=== PATIENT | male | born 1960 | race Caucasian/White ===

== ENCOUNTER 2017-01-15 14:46 | Emergency (ER) | payer OTHER ==
[~2017-01-15] VITALS: Wt 68.0 kg
[~2017-01-15 14:46] MED LIST: SYNTHROID25 MCG PO; XANAX0.5 MG PO; XARE20MG PO; XARELTO15 M1 PO
[2017-01-15] MEDS ORDERED: LEVAQUIN250 M1 PO (15:12)
[2017-01-15 15:58] LABS: BASO % 0.5 % (0.0-1.0); HEMATOCRIT 40.2 % (42.0-52.0); HEMOGLOBIN 14.2 g/dl (14.0-18.0); LYMPH # 0.6 10*3/uL (1.3-4.4); LYMPH % 10.5 % (27.0-41.0); MEAN CELL VOLUME 93.9 fl (80.0-94.0); MEAN CORPUSCULAR HGB 33.2 pg (27.0-31.0); MEAN CORPUSCULAR HGB CONC 35.3 g/dl (33.0-37.0); MEAN PLATELET VOLUME 11.8 fl (9.6-12.3); MONO # 0.8 10*3/uL (0.1-1.0); MONO % 13.4 % (3.0-9.0); NEUT # 4.2 10*3/uL (2.3-7.9); NEUT % 75.1 % (47.0-73.0); PLATELET COUNT AUTOMATED 74 10*3/uL (130-400); RED BLOOD COUNT 4.28 10*6/uL (4.50-5.90); WHITE BLOOD COUNT 5.6 10*3/uL (4.8-10.8)
[2017-01-15 16:06] LABS: INTERNATIONAL NORM RATIO 1.2 (2.0-3.5); PROTHROMBIN TIME 12.5 SECONDS (9.0-12.4)
[2017-01-15 16:12] LABS: ALKALINE PHOSPHATASE 151 U/L (45-117); BILIRUBIN, DIRECT 0.5 mg/dL (0.0-0.2); BILIRUBIN, TOTAL 0.8 mg/dl (0.2-1.0); BUN 8 mg/dl (7-24); CARBON DIOXIDE 24 mmol/L (21-32); CHLORIDE 96 mmol/L (98-107); EST GLOM FILT AFRICAN AMERICAN > 60 ml/min; GLUCOSE 92 mg/dL (65-99); POTASSIUM 3.5 mmol/L (3.5-5.1); SGOT/AST 76 IU/L (3-35); SGPT/ALT 92 U/L (12-78); SODIUM 137 mmol/L (136-145); TOTAL PROTEIN 6.6 gm/dL (6.4-8.2)
== END 2017-01-15 18:00 | disposition home or self-care (01) ==
LOC: ED 14:46
PROVIDERS: Nurse Practitioner Family
DX: K76.0 Fatty (change of) liver, not elsewhere classified (principal); R79.89 Other specified abnormal findings of blood chemistry; R91.1 Solitary pulmonary nodule; Z86.718 Personal history of other venous thrombosis and embolism; Z79.899 Other long term (current) drug therapy

== ENCOUNTER 2017-04-09 11:49 | Inpatient (IN) | payer OTHER ==
[2017-04-09] VITALS (11 sets, daily range): BP systolic 110–125; BP diastolic 60–78
[~2017-04-09] VITALS: Ht 180.3 cm; Wt 76.7 kg
--- NOTE | ~2017-04-09 | PR ---
[place], [place] PROGRESS NOTE NAME: PAUL RUDOLPH UNIT #: [id number] ROOM: 504 DOCTOR: PAULINO MARINA MD BIRTHDATE: [birth year] DOS: SUBJECTIVE: The patient is doing better. He will be transferred to a [facility]. REVIEW OF SYSTEMS HEENT: No trouble swallowing. No double vision. No loss of vision. No pain. ENT AND RESPIRATORY: No wheeze. No change in voice. No cough. No shortness of breath. No coughing up blood. No epistaxis. CARDIOLOGIC: No chest pain. No dizziness. No irregular heartbeat. No leg edema. No palpitations. No shortness of breath. HEMATOLOGIC AND LYMPH: No past transfusion. No fatigue. No loss of appetite. No easy bruising. GASTROENEROLOGIC: No change in bowel habits. No vomiting blood. No abdominal cramping. No nausea. No vomiting. No diarrhea. No constipation. No blood in stool. MALE REPRODUCTIVE: No testicular pain. No penile discharge. MUSCULOSKELETAL: No back pain. No muscle pain or weakness. No tingling/numbness. UROLOGIC: No pain with urination. No difficulty urinating. No frequent urination. NEUROLOGIC: No burning pain in feet. No trouble with coordination. No loss of consciousness. No headache. No tingling/numbness. No memory loss. PHYSICAL EXAMINATION: GENERAL: Pleasant gentleman in no apparent distress. VITAL SIGNS: Stable, afebrile. HEENT: Normocephalic, atraumatic NECK AND THYROID: Supple. No JVD, thyromegaly, or lymphadenopathy. HEART: Normal S1, S2. Regular rate and rhythm. LUNGS: Clear to auscultation and percussion. ABDOMEN: Soft. Nontender, nondistended. Bowel sounds present. EXTREMITIES: Normal ROM. No clubbing. No edema. LABORATORY DATA: White count of 4.2, hemoglobin 9.8, hematocrit 29.5, platelet count 149,000. Chemistries: Sodium 135, potassium 3.3, EGFR is more than 60, total protein 6.6. TIBC 228, iron 134, saturation 58. No lupus anticoagulant was detected. Hepatitis E antibody IgM was positive. Haptoglobin was 117, ferritin was 644.8. Folic acid 2.94, vitamin B12 324. ASSESSMENT: 1. Anemia of chronic disease. 2. Probably of folic acid deficiency. 3. Macrocytosis. 4. Post-thrombotic syndrome of left upper extremity. 5. Hepatic steatosis. PLAN: The patient is going to [facility] for rehab. We will keep a close watch at this time. His counts are low, but hopefully get better. His overall condition improves, he will be following his outpatient, [place], [place] PROGRESS NOTE NAME: PAUL RUDOLPH UNIT #: [id number] ROOM: [facility] DOCTOR: LAINA STEINBERG,PAULINO BIRTHDATE: [birth year] further intervention and discussed with the patient in detail. PAULINO MARINA MD CM:PNTRANS [id number] PAULINO MARINA MD 04/17/17 0147 interface
[~2017-04-09 11:49] MED LIST changes: +LEVAQUIN250 M1 PO
[2017-04-09 12:38] LABS: BASO % 0.3 % (0.0-1.0); EOS % 0.2 % (1.0-4.0); HEMATOCRIT 20.8 % (42.0-52.0); HEMOGLOBIN 6.6 g/dl (14.0-18.0); IG # 0.1 10*3/uL (0.0-0.1); LYMPH # 0.4 10*3/uL (1.3-4.4); LYMPH % 6.8 % (27.0-41.0); MEAN CELL VOLUME 106.7 fl (80.0-94.0); MEAN CORPUSCULAR HGB 33.8 pg (27.0-31.0); MEAN CORPUSCULAR HGB CONC 31.7 g/dl (33.0-37.0); MEAN PLATELET VOLUME 10.2 fl (9.6-12.3); MONO # 0.5 10*3/uL (0.1-1.0); MONO % 7.3 % (3.0-9.0); NEUT # 5.3 10*3/uL (2.3-7.9); NEUT % 84.1 % (47.0-73.0); PLATELET COUNT AUTOMATED 143 10*3/uL (130-400); RED BLOOD COUNT 1.95 10*6/uL (4.50-5.90); WHITE BLOOD COUNT 6.3 10*3/uL (4.8-10.8)
[2017-04-09 12:56] LABS: ALBUMIN 2.9 gm/dl (3.1-4.5); ALKALINE PHOSPHATASE 253 U/L (45-117); BILIRUBIN, TOTAL 3.8 mg/dl (0.2-1.0); BUN 12 mg/dl (7-24); CARBON DIOXIDE 21 mmol/L (21-32); CHLORIDE 98 mmol/L (98-107); EST GLOM FILT AFRICAN AMERICAN > 60 ml/min; GLUCOSE 96 mg/dL (65-99); POTASSIUM 4.7 mmol/L (3.5-5.1); SGOT/AST 75 IU/L (3-35); SGPT/ALT 50 U/L (12-78); SODIUM 133 mmol/L (136-145); TOTAL PROTEIN 6.3 gm/dL (6.4-8.2)
[2017-04-09 12:57] LABS: TROPONIN I < 0.015 ng/ml (<0.045)
[2017-04-09] MEDS ORDERED: TRAMADOL HCL50 MG PO (15:31)
[2017-04-09 18:12] LABS: CKMB < 0.5 ng/ml (0.5-3.6); CPK 46 U/L (39-308)
[2017-04-09 20:58] LABS: HEMATOCRIT 23.7 % (42.0-52.0); HEMOGLOBIN 7.7 g/dl (14.0-18.0)
[2017-04-10] VITALS: BP 104/58
[2017-04-10 02:25] LABS: CPK 41 U/L (39-308)
[2017-04-10 02:28] LABS: CKMB < 0.5 ng/ml (0.5-3.6)
[2017-04-10 06:18] LABS: BASO % 0.4 % (0.0-1.0); EOS % 0.9 % (1.0-4.0); HEMATOCRIT 22.4 % (42.0-52.0); HEMOGLOBIN 7.1 g/dl (14.0-18.0); IG # 0.1 10*3/uL (0.0-0.1); LYMPH # 0.5 10*3/uL (1.3-4.4); LYMPH % 10.5 % (27.0-41.0); MEAN CELL VOLUME 105.2 fl (80.0-94.0); MEAN CORPUSCULAR HGB 33.3 pg (27.0-31.0); MEAN CORPUSCULAR HGB CONC 31.7 g/dl (33.0-37.0); MEAN PLATELET VOLUME 10.2 fl (9.6-12.3); MONO # 0.3 10*3/uL (0.1-1.0); MONO % 5.8 % (3.0-9.0); NEUT # 3.8 10*3/uL (2.3-7.9); NEUT % 81.1 % (47.0-73.0); PLATELET COUNT AUTOMATED 112 10*3/uL (130-400); RED BLOOD COUNT 2.13 10*6/uL (4.50-5.90); RED CELL DISTRI WIDTH 18.5 % (0-14.5); WHITE BLOOD COUNT 4.7 10*3/uL (4.8-10.8)
[2017-04-10 06:39] LABS: CKMB < 0.5 ng/ml (0.5-3.6); CPK 33 U/L (39-308); INTERNATIONAL NORM RATIO 1.1 (2.0-3.5); PROTHROMBIN TIME 11.4 SECONDS (9.0-12.4)
[2017-04-10 06:42] LABS: ALBUMIN 2.5 gm/dl (3.1-4.5); ALKALINE PHOSPHATASE 195 U/L (45-117); BILIRUBIN, TOTAL 3.7 mg/dl (0.2-1.0); BUN 18 mg/dl (7-24); CARBON DIOXIDE 24 mmol/L (21-32); CHLORIDE 100 mmol/L (98-107); CHOLESTEROL 111 mg/dL (<200); EST GLOM FILT AFRICAN AMERICAN > 60 ml/min; GLUCOSE 98 mg/dL (65-99); HDL CHOLESTEROL 49 mg/dl (40-60); LDL CHOLESTEROL 41 mg/dL (9-159); MAGNESIUM 2.1 mg/dL (1.5-2.1); PHOSPHOROUS 3.3 mg/dL (2.5-4.9); POTASSIUM 4.1 mmol/L (3.5-5.1); SGOT/AST 53 IU/L (3-35); SGPT/ALT 38 U/L (12-78); SODIUM 133 mmol/L (136-145); TOTAL PROTEIN 5.6 gm/dL (6.4-8.2); TRIGLYCERIDES 104 mg/dl (<150); VLDL CHOLESTEROL 21 mg/dL (6-40)
[2017-04-10 06:43] LABS: ESTIMATED AVERAGE GLUCOSE 54; HEMOGLOBIN A1c < 3.5 % (4.8-5.6)
[2017-04-10 06:56] LABS: FOLIC ACID 2.94 ng/mL (>5.38); VITAMIN D, 25-HYDROXY 7.2 ng/mL (30-100)
[2017-04-10 08:00] VITALS: BP 106/61
[2017-04-10 10:20] LABS: IRF 33.7 % (2.4-13.3); RETICULOCYTE % 13.18 % (0.50-2.50)
[2017-04-10 10:21] LABS: RET-He 31.8 pg (32.1-37.9)
[2017-04-10 10:35] LABS: IRON 134 ug/dL (65-175)
[2017-04-10 12:00] VITALS: BP 120/62
[2017-04-10 16:00] VITALS: BP 112/66; BP 156/85
[2017-04-10 20:00] VITALS: BP 111/60
[2017-04-11] VITALS: BP 103/62
[2017-04-11 06:01] LABS: BASO % 0.3 % (0.0-1.0); EOS # 0.1 10*3/uL (0.0-0.4); HEMATOCRIT 25.7 % (42.0-52.0); HEMOGLOBIN 8.1 g/dl (14.0-18.0); IG # 0.1 10*3/uL (0.0-0.1); LYMPH # 0.7 10*3/uL (1.3-4.4); LYMPH % 12.9 % (27.0-41.0); MEAN CORPUSCULAR HGB CONC 31.5 g/dl (33.0-37.0); MEAN PLATELET VOLUME 10.6 fl (9.6-12.3); MONO # 0.3 10*3/uL (0.1-1.0); MONO % 4.7 % (3.0-9.0); NEUT # 4.6 10*3/uL (2.3-7.9); NEUT % 80.2 % (47.0-73.0); PLATELET COUNT AUTOMATED 137 10*3/uL (130-400); RED BLOOD COUNT 2.38 10*6/uL (4.50-5.90); RED CELL DISTRI WIDTH 18.3 % (0-14.5); WHITE BLOOD COUNT 5.8 10*3/uL (4.8-10.8)
[2017-04-11 06:25] LABS: BUN 14 mg/dl (7-24); CARBON DIOXIDE 24 mmol/L (21-32); CHLORIDE 99 mmol/L (98-107); EST GLOM FILT AFRICAN AMERICAN > 60 ml/min; GLUCOSE 94 mg/dL (65-99); POTASSIUM 3.6 mmol/L (3.5-5.1); SODIUM 135 mmol/L (136-145)
[2017-04-11 06:32] LABS: PROTHROMBIN TIME 10.1 SECONDS (9.0-12.4)
[2017-04-11 08:00] VITALS: BP 101/74
[2017-04-11 12:00] VITALS: BP 102/65
[2017-04-11 16:00] VITALS: BP 105/63
[2017-04-11 19:10] LABS: HEPATITIS C VIRUS ANTIBODY <0.1 s/co (0.0-0.9)
[2017-04-11 20:00] VITALS: BP 118/74
[2017-04-12] VITALS (11 sets, daily range): BP systolic 109–129; BP diastolic 65–77
[2017-04-12 05:53] LABS: BASO % 0.2 % (0.0-1.0); EOS % 0.9 % (1.0-4.0); HEMATOCRIT 21.4 % (42.0-52.0); HEMOGLOBIN 6.8 g/dl (14.0-18.0); LYMPH # 0.5 10*3/uL (1.3-4.4); LYMPH % 11.4 % (27.0-41.0); MEAN CELL VOLUME 105.9 fl (80.0-94.0); MEAN CORPUSCULAR HGB 33.7 pg (27.0-31.0); MEAN CORPUSCULAR HGB CONC 31.8 g/dl (33.0-37.0); MEAN PLATELET VOLUME 10.6 fl (9.6-12.3); MONO # 0.3 10*3/uL (0.1-1.0); MONO % 6.9 % (3.0-9.0); NEUT # 3.4 10*3/uL (2.3-7.9); NEUT % 79.9 % (47.0-73.0); PLATELET COUNT AUTOMATED 110 10*3/uL (130-400); RED BLOOD COUNT 2.02 10*6/uL (4.50-5.90); RED CELL DISTRI WIDTH 17.3 % (0-14.5); WHITE BLOOD COUNT 4.2 10*3/uL (4.8-10.8)
[2017-04-12 06:26] LABS: ALBUMIN 2.5 gm/dl (3.1-4.5); ALKALINE PHOSPHATASE 160 U/L (45-117); BILIRUBIN, TOTAL 1.7 mg/dl (0.2-1.0); BUN 9 mg/dl (7-24); CARBON DIOXIDE 24 mmol/L (21-32); CHLORIDE 101 mmol/L (98-107); EST GLOM FILT AFRICAN AMERICAN > 60 ml/min; GLUCOSE 94 mg/dL (65-99); POTASSIUM 3.8 mmol/L (3.5-5.1); SGOT/AST 54 IU/L (3-35); SGPT/ALT 40 U/L (12-78); SODIUM 134 mmol/L (136-145); TOTAL PROTEIN 5.6 gm/dL (6.4-8.2)
[2017-04-12 13:30] LABS: BASO % 0.2 % (0.0-1.0); EOS % 0.9 % (1.0-4.0); LYMPH # 0.5 10*3/uL (1.3-4.4); LYMPH % 10.9 % (27.0-41.0); MEAN CORPUSCULAR HGB 33.2 pg (27.0-31.0); MEAN CORPUSCULAR HGB CONC 32.5 g/dl (33.0-37.0); MEAN PLATELET VOLUME 10.6 fl (9.6-12.3); MONO # 0.3 10*3/uL (0.1-1.0); MONO % 6.2 % (3.0-9.0); NEUT # 3.6 10*3/uL (2.3-7.9); NEUT % 81.1 % (47.0-73.0); PLATELET COUNT AUTOMATED 125 10*3/uL (130-400); RED BLOOD COUNT 2.83 10*6/uL (4.50-5.90); RED CELL DISTRI WIDTH 18.7 % (0-14.5); WHITE BLOOD COUNT 4.4 10*3/uL (4.8-10.8)
[2017-04-12 13:31] LABS: HEMATOCRIT 28.9 % (42.0-52.0); HEMOGLOBIN 9.4 g/dl (14.0-18.0); MEAN CELL VOLUME 102.1 fl (80.0-94.0)
[2017-04-13] VITALS: BP 112/60
[2017-04-13 07:14] LABS: BASO % 0.2 % (0.0-1.0); EOS % 0.7 % (1.0-4.0); HEMATOCRIT 26.3 % (42.0-52.0); HEMOGLOBIN 8.7 g/dl (14.0-18.0); LYMPH # 0.6 10*3/uL (1.3-4.4); LYMPH % 13.7 % (27.0-41.0); MEAN CORPUSCULAR HGB 33.1 pg (27.0-31.0); MEAN CORPUSCULAR HGB CONC 33.1 g/dl (33.0-37.0); MEAN PLATELET VOLUME 10.2 fl (9.6-12.3); MONO # 0.4 10*3/uL (0.1-1.0); MONO % 9.8 % (3.0-9.0); NEUT # 3.1 10*3/uL (2.3-7.9); NEUT % 75.1 % (47.0-73.0); PLATELET COUNT AUTOMATED 123 10*3/uL (130-400); RED BLOOD COUNT 2.63 10*6/uL (4.50-5.90); RED CELL DISTRI WIDTH 18.1 % (0-14.5); WHITE BLOOD COUNT 4.1 10*3/uL (4.8-10.8)
[2017-04-13 07:16] LABS: BUN 12 mg/dl (7-24); CARBON DIOXIDE 25 mmol/L (21-32); CHLORIDE 97 mmol/L (98-107); EST GLOM FILT AFRICAN AMERICAN > 60 ml/min; GLUCOSE 87 mg/dL (65-99); POTASSIUM 3.6 mmol/L (3.5-5.1); SODIUM 133 mmol/L (136-145)
[2017-04-13 08:00] VITALS: BP 116/72
[2017-04-13] MEDS ORDERED: KLOR-CON M1010 ME1 PO (10:23)
[2017-04-13] MEDS ORDERED: VITAMIN D50000 I3 PO (10:23)
[2017-04-13] MEDS ORDERED: PANTOPRAZOLE SO40 MG PO (10:23)
[2017-04-13] MEDS ORDERED: LASIX40 MG PO (10:23)
[2017-04-13] MEDS ORDERED: FEOSOL325 MG PO (10:23)
[2017-04-13] MEDS ORDERED: NATURE'S BLEND F1 MG PO (10:23)
[2017-04-13] MEDS ORDERED: NORCO 7.5-3251 EACH PO (10:23)
[2017-04-13 12:00] VITALS: BP 125/81
[2017-04-13 16:00] VITALS: BP 111/72
[2017-04-13 20:00] VITALS: BP 118/71
[2017-04-14] VITALS: BP 102/58
[2017-04-14 08:00] VITALS: BP 114/76
[2017-04-14 09:43] LABS: BASO % 0.5 % (0.0-1.0); EOS % 0.5 % (1.0-4.0); HEMATOCRIT 27.2 % (42.0-52.0); LYMPH # 0.5 10*3/uL (1.3-4.4); LYMPH % 11.5 % (27.0-41.0); MEAN CELL VOLUME 100.4 fl (80.0-94.0); MEAN CORPUSCULAR HGB 33.2 pg (27.0-31.0); MEAN CORPUSCULAR HGB CONC 33.1 g/dl (33.0-37.0); MEAN PLATELET VOLUME 10.1 fl (9.6-12.3); MONO # 0.4 10*3/uL (0.1-1.0); MONO % 9.7 % (3.0-9.0); NEUT # 3.4 10*3/uL (2.3-7.9); NEUT % 77.3 % (47.0-73.0); PLATELET COUNT AUTOMATED 128 10*3/uL (130-400); RED BLOOD COUNT 2.71 10*6/uL (4.50-5.90); RED CELL DISTRI WIDTH 16.8 % (0-14.5); WHITE BLOOD COUNT 4.4 10*3/uL (4.8-10.8)
[2017-04-14 09:50] LABS: PROTHROMBIN TIME 10.3 SECONDS (9.0-12.4)
[2017-04-14 09:54] LABS: BUN 14 mg/dl (7-24); CARBON DIOXIDE 27 mmol/L (21-32); CHLORIDE 96 mmol/L (98-107); EST GLOM FILT AFRICAN AMERICAN > 60 ml/min; GLUCOSE 98 mg/dL (65-99); POTASSIUM 3.9 mmol/L (3.5-5.1); SODIUM 134 mmol/L (136-145)
[2017-04-14 12:00] VITALS: BP 96/66
[2017-04-14 16:00] VITALS: BP 109/59
[2017-04-14 20:00] VITALS: BP 119/67
[2017-04-15] VITALS: BP 122/74
[2017-04-15 02:06] LABS: ANTI-THROMBIN III ACTIVITY 93 % (75-135); LUPUS DRVVT 46.2 sec (0.0-47.0); LUPUS REFLEX INTERPRETATION Comment: (.); PROTEIN S, FREE 120 % (57-157); PROTEIN S, TOTAL 181 % (60-150); PTT-LA 38.7 sec (0.0-51.9)
[2017-04-15 06:21] LABS: BASO % 0.2 % (0.0-1.0); EOS % 0.7 % (1.0-4.0); HEMOGLOBIN 9.3 g/dl (14.0-18.0); LYMPH # 0.6 10*3/uL (1.3-4.4); LYMPH % 13.4 % (27.0-41.0); MEAN CORPUSCULAR HGB 33.2 pg (27.0-31.0); MEAN CORPUSCULAR HGB CONC 33.2 g/dl (33.0-37.0); MONO # 0.4 10*3/uL (0.1-1.0); MONO % 9.8 % (3.0-9.0); NEUT # 3.3 10*3/uL (2.3-7.9); NEUT % 75.4 % (47.0-73.0); PLATELET COUNT AUTOMATED 140 10*3/uL (130-400); RED CELL DISTRI WIDTH 15.8 % (0-14.5); WHITE BLOOD COUNT 4.4 10*3/uL (4.8-10.8)
[2017-04-15 06:38] LABS: ALBUMIN 2.7 gm/dl (3.1-4.5); ALKALINE PHOSPHATASE 150 U/L (45-117); BILIRUBIN, TOTAL 1.6 mg/dl (0.2-1.0); BUN 14 mg/dl (7-24); CARBON DIOXIDE 27 mmol/L (21-32); CHLORIDE 96 mmol/L (98-107); EST GLOM FILT AFRICAN AMERICAN > 60 ml/min; GLUCOSE 86 mg/dL (65-99); POTASSIUM 3.7 mmol/L (3.5-5.1); SGOT/AST 37 IU/L (3-35); SGPT/ALT 40 U/L (12-78); SODIUM 133 mmol/L (136-145); TOTAL PROTEIN 6.6 gm/dL (6.4-8.2)
[2017-04-15 07:07] LABS: HIV 1+2 AB + HIV1 P24 AG Non Reactive (Non Reactive)
[2017-04-15 08:00] VITALS: BP 106/66
[2017-04-15 12:00] VITALS: BP 94/56
[2017-04-15 16:00] VITALS: BP 117/75; BP 131/71
[2017-04-15 20:00] VITALS: BP 100/60
[2017-04-16] VITALS: BP 100/57
[2017-04-16 06:44] LABS: BASO % 0.5 % (0.0-1.0); EOS # 0.1 10*3/uL (0.0-0.4); EOS % 1.2 % (1.0-4.0); HEMATOCRIT 29.5 % (42.0-52.0); HEMOGLOBIN 9.8 g/dl (14.0-18.0); LYMPH # 0.7 10*3/uL (1.3-4.4); LYMPH % 15.9 % (27.0-41.0); MEAN CELL VOLUME 98.7 fl (80.0-94.0); MEAN CORPUSCULAR HGB 32.8 pg (27.0-31.0); MEAN CORPUSCULAR HGB CONC 33.2 g/dl (33.0-37.0); MEAN PLATELET VOLUME 10.5 fl (9.6-12.3); MONO # 0.4 10*3/uL (0.1-1.0); MONO % 8.9 % (3.0-9.0); PLATELET COUNT AUTOMATED 149 10*3/uL (130-400); RED BLOOD COUNT 2.99 10*6/uL (4.50-5.90); RED CELL DISTRI WIDTH 14.9 % (0-14.5); WHITE BLOOD COUNT 4.2 10*3/uL (4.8-10.8)
[2017-04-16 07:12] LABS: BUN 17 mg/dl (7-24); CARBON DIOXIDE 28 mmol/L (21-32); CHLORIDE 97 mmol/L (98-107); EST GLOM FILT AFRICAN AMERICAN > 60 ml/min; GLUCOSE 83 mg/dL (65-99); POTASSIUM 3.3 mmol/L (3.5-5.1); SODIUM 135 mmol/L (136-145)
[2017-04-16 07:21] LABS: PROTHROMBIN TIME 10.6 SECONDS (9.0-12.4)
[2017-04-16 08:00] VITALS: BP 119/72
[2017-04-16 12:00] VITALS: BP 117/80
== END 2017-04-16 15:17 | disposition other institution (70) | DRG 441 ==
LOC: ED 11:49 → EDHOLD 13:59 → 5E 13:59
PROVIDERS: Emergency Medicine; Family Medicine; Hospitalist; Internal Medicine
PROC: 30233N1 Transfusion of Nonautologous Red Blood Cells into Peripheral Vein, Percutaneous Approach (ICD-10-PCS; principal; 2017-04-12)
DX: B15.9 Hepatitis A without hepatic coma (principal); E43 Unspecified severe protein-calorie malnutrition; D69.2 Other nonthrombocytopenic purpura; E87.1 Hypo-osmolality and hyponatremia; I87.002 Postthrombotic syndrome without complications of left lower extremity; D63.8 Anemia in other chronic diseases classified elsewhere; Z79.01 Long term (current) use of anticoagulants; E80.6 Other disorders of bilirubin metabolism; Z86.018 Personal history of other benign neoplasm; Z86.718 Personal history of other venous thrombosis and embolism; Z82.3 Family history of stroke; D53.9 Nutritional anemia, unspecified; Z71.6 Tobacco abuse counseling; R74.0 Nonspecific elevation of levels of transaminase and lactic acid dehydrogenase [LDH]; R74.8 Abnormal levels of other serum enzymes; Z68.23 Body mass index [BMI] 23.0-23.9, adult; K76.0 Fatty (change of) liver, not elsewhere classified; D75.89 Other specified diseases of blood and blood-forming organs; F10.10 Alcohol abuse, uncomplicated; F17.220 Nicotine dependence, chewing tobacco, uncomplicated

== ENCOUNTER 2017-09-17 14:29 | Inpatient (IN) | payer MEDICARE, MEDICAID ==
[~2017-09-17] VITALS: Ht 177.8 cm; Wt 64.9 kg
[~2017-09-17 14:29] MED LIST changes: +FEOSOL325 MG PO; +KLOR-CON M1010 ME1 PO; +LASIX40 MG PO; +NATURE'S BLEND F1 MG PO; +NORCO 7.5-3251 EACH PO; +PANTOPRAZOLE SO40 MG PO; +TRAMADOL HCL50 MG PO; +VITAMIN D50000 I3 PO
[2017-09-17 14:52] VITALS: BP 118/84
[2017-09-17 15:47] LABS: BASO % 0.4 % (0.0-1.0); EOS % 0.3 % (1.0-4.0); HEMATOCRIT 43.6 % (42.0-52.0); HEMOGLOBIN 15.4 g/dl (14.0-18.0); LYMPH # 0.8 10*3/uL (1.3-4.4); LYMPH % 8.5 % (27.0-41.0); MEAN CELL VOLUME 91.2 fl (80.0-94.0); MEAN CORPUSCULAR HGB 32.2 pg (27.0-31.0); MEAN CORPUSCULAR HGB CONC 35.3 g/dl (33.0-37.0); MEAN PLATELET VOLUME 10.2 fl (9.6-12.3); MONO # 1.2 10*3/uL (0.1-1.0); MONO % 12.1 % (3.0-9.0); NEUT # 7.6 10*3/uL (2.3-7.9); NEUT % 78.3 % (47.0-73.0); PLATELET COUNT AUTOMATED 109 10*3/uL (130-400); RED BLOOD COUNT 4.78 10*6/uL (4.50-5.90); RED CELL DISTRI WIDTH 13.3 % (0-14.5); WHITE BLOOD COUNT 9.7 10*3/uL (4.8-10.8)
[2017-09-17 16:00] LABS: ACT PARTIAL THROMBO TIME 27.1 SECONDS (20.8-31.5)
[2017-09-17 16:04] LABS: ALBUMIN 3.4 gm/dl (3.1-4.5); BUN 12 mg/dl (7-24); CHLORIDE 98 mmol/L (98-107); CREATININE 0.94 mg/dL (0.70-1.30); POTASSIUM 4.3 mmol/L (3.5-5.1); SGOT/AST 42 IU/L (3-35); SGPT/ALT 41 U/L (12-78); SODIUM 135 mmol/L (136-145)
[2017-09-17 16:06] LABS: ALKALINE PHOSPHATASE 172 U/L (45-117); TOTAL PROTEIN 7.5 gm/dL (6.4-8.2)
--- NOTE | 2017-09-17 17:02 | NUR ---
A 57, admitted to 5E, under the services of CARSON Shah DO with a diagnosis of DVT. Chief complaint is PAIN TO RT LEG. Patient arrived via stretcher from ER. Monitor applied. Initial assessment completed. Vital signs taken and recorded. CARSON SHAH DO notified of admission to the unit. Orders received. See assessment for past medical history, medications and allergies. Patient and/or family oriented to unit. [facility] visitation policy reviewed. AUDIE XAVIER
[2017-09-17 17:13] VITALS: BP 134/77
--- NOTE | 2017-09-17 17:58 | NUR ---
DR MARINA NOTIFIED OF CONSULT, HE STATES HE IS AT A [facility]. FOLLOW UP ONE WEEK AFTER DISCHARGE.
[2017-09-17 20:00] VITALS: BP 119/67
--- NOTE | 2017-09-17 23:36 | NUR ---
SPOKE WITH DR. VALDES AT THIS TIME FOR PTS. REQUEST OF SOMETHING TO HELP HIM SLEEP. PER DR. VALDES, HE WILL TAKE A LOOK AT IT AND SEE WHAT HE CAN DO.
[2017-09-18] VITALS: BP 118/73
--- NOTE | 2017-09-18 00:42 | NUR ---
restoril given at this time for complaints of not being able to sleep. will monitor for effectiveness.
--- NOTE | 2017-09-18 01:09 | NUR ---
APTT THERAPEUTIC AT 69.1, NO CHANGE TO HEPARIN DRIP AT THIS TIME.
--- NOTE | 2017-09-18 01:30 | NUR ---
RESTORIL EFFECTIVE, PATIENT SLEEPING AT THIS TIME.
--- NOTE | 2017-09-18 05:57 | NUR ---
APTT IS 75.9, NO CHANGE NEEDED FOR HEPARIN DRIP AT THIS TIME.
[2017-09-18 06:03] LABS: ALKALINE PHOSPHATASE 138 U/L (45-117); BUN 12 mg/dl (7-24); CHLORIDE 101 mmol/L (98-107); CHOLESTEROL 171 mg/dL (<200); CREATININE 0.81 mg/dL (0.70-1.30); HDL CHOLESTEROL 100 mg/dl (40-60); LDL CHOLESTEROL 55 mg/dL (9-159); PHOSPHOROUS 3.9 mg/dL (2.5-4.9); POTASSIUM 3.6 mmol/L (3.5-5.1); SGOT/AST 32 IU/L (3-35); SGPT/ALT 36 U/L (12-78); SODIUM 137 mmol/L (136-145); TOTAL PROTEIN 6.4 gm/dL (6.4-8.2); TRIGLYCERIDES 82 mg/dl (<150); VLDL CHOLESTEROL 16 mg/dL (6-40)
[2017-09-18 06:09] LABS: BASO % 0.3 % (0.0-1.0); EOS # 0.1 10*3/uL (0.0-0.4); EOS % 1.3 % (1.0-4.0); HEMATOCRIT 38.1 % (42.0-52.0); HEMOGLOBIN 13.6 g/dl (14.0-18.0); LYMPH # 1.7 10*3/uL (1.3-4.4); LYMPH % 18.3 % (27.0-41.0); MEAN CELL VOLUME 91.6 fl (80.0-94.0); MEAN CORPUSCULAR HGB 32.7 pg (27.0-31.0); MEAN CORPUSCULAR HGB CONC 35.7 g/dl (33.0-37.0); MEAN PLATELET VOLUME 11.1 fl (9.6-12.3); MONO # 1.2 10*3/uL (0.1-1.0); MONO % 12.4 % (3.0-9.0); NEUT # 6.2 10*3/uL (2.3-7.9); NEUT % 67.1 % (47.0-73.0); PLATELET COUNT AUTOMATED 96 10*3/uL (130-400); RED BLOOD COUNT 4.16 10*6/uL (4.50-5.90); RED CELL DISTRI WIDTH 13.3 % (0-14.5); WHITE BLOOD COUNT 9.3 10*3/uL (4.8-10.8)
[2017-09-18 08:00] VITALS: BP 107/75
--- NOTE | 2017-09-18 08:00 | NUR ---
Poultry Scientist in to talk to patient. Patient states lives at home alone. There are 17 steps in the home. Physician: Dr. Hiren Villanueva Pharmacy: [facility] Home health services: none Patient's level of ADLs: INDEPENDENT Patient has working utilities: yes DME: none Follow-up physician's appointment after d/c: will be made by the hospitalist nurse director upon discharge Does patient want to access PORTAL?: no Discharge plan discussed with patient. He lives in an apartment by himself. He is independent in his ADLs and ambulation. At this time he denies any home needs. When medically stable he will be discharged to home. BRIE CANCHOLA
[2017-09-18 08:48] LABS: VITAMIN D, 25-HYDROXY 14.2 ng/mL (30-100)
--- NOTE | 2017-09-18 10:32 | NUR ---
I SPOKE WITH DR. MARTINEZ REGARDING THE CONSULT AND HE SAID THAT HE HAS ALREADY ROUNDED THIS MORNING AND HE SAID THE PHYSICIANS CAN MANAGE THE PE ON THEIR OWN. DR. ATKINS WAS NOTIFIED AND SAID HE WILL CALL DR. MARTINEZ AND ASK HIM SOME QUESTIONS.
[2017-09-18 12:00] VITALS: BP 106/60
--- NOTE | 2017-09-18 15:00 | NUR ---
Spoke to Bill at [facility] regarding insurance coverage for Lovenox 1mg/kg, no copay for either 60 mcg or 80 mcg. [place], hospitalist nurse, notified.
[2017-09-18 16:00] VITALS: BP 111/76
--- NOTE | 2017-09-18 18:17 | NUR ---
PER DR. GATES, STOP THE HEPARIN DRIP AND ADMINISTER LOVENOX 60 MINS AFTER DRIP DISCONTINUED. LOVENOX TEACHING COMPLETED.
--- NOTE | 2017-09-18 19:39 | NUR ---
PATIENT SUCCESSFULLY ADMININISTERED OWN LOVENOX INJECTION.
[2017-09-18 20:00] VITALS: BP 116/67
[2017-09-19] VITALS: BP 113/69
[2017-09-19 05:55] LABS: BASO % 0.4 % (0.0-1.0); EOS # 0.1 10*3/uL (0.0-0.4); EOS % 1.1 % (1.0-4.0); HEMATOCRIT 36.7 % (42.0-52.0); HEMOGLOBIN 12.8 g/dl (14.0-18.0); LYMPH # 1.4 10*3/uL (1.3-4.4); LYMPH % 19.7 % (27.0-41.0); MEAN CELL VOLUME 92.2 fl (80.0-94.0); MEAN CORPUSCULAR HGB 32.2 pg (27.0-31.0); MEAN CORPUSCULAR HGB CONC 34.9 g/dl (33.0-37.0); MEAN PLATELET VOLUME 10.7 fl (9.6-12.3); MONO # 0.8 10*3/uL (0.1-1.0); MONO % 11.4 % (3.0-9.0); NEUT # 4.7 10*3/uL (2.3-7.9); NEUT % 66.8 % (47.0-73.0); PLATELET COUNT AUTOMATED 116 10*3/uL (130-400); RED BLOOD COUNT 3.98 10*6/uL (4.50-5.90); RED CELL DISTRI WIDTH 13.2 % (0-14.5)
[2017-09-19 06:09] LABS: BUN 9 mg/dl (7-24); CHLORIDE 105 mmol/L (98-107); CREATININE 0.74 mg/dL (0.70-1.30); POTASSIUM 3.4 mmol/L (3.5-5.1); SODIUM 139 mmol/L (136-145)
[2017-09-19 06:14] LABS: ACT PARTIAL THROMBO TIME 25.9 SECONDS (20.8-31.5); INTERNATIONAL NORM RATIO 0.9 (2.0-3.5)
--- NOTE | 2017-09-19 07:33 | NUR ---
Shift chart check completed.
[2017-09-19 08:00] VITALS: BP 130/73
[2017-09-19 12:00] VITALS: BP 124/75
[2017-09-19] MEDS ORDERED: ENOXAPARIN80 MG/0.2 SC (13:39)
[2017-09-19] MEDS ORDERED: COUMADIN5 M2 PO (13:39)
[2017-09-19 16:00] VITALS: BP 128/70
--- NOTE | 2017-09-19 16:00 | NUR ---
Discharge instructions reviewed with patient/family. Patient receptive and verbalizes understanding. Follow-up care arranged. Written instructions given to patient/family. RAFIQ BROOKS
== END 2017-09-19 16:00 | disposition home or self-care (01) | DRG 299 ==
LOC: ED 14:29 → EDHOLD 16:06 → 5E 16:06
PROVIDERS: Physician Assistant; Student in an Organized Health Care Education/Training Program; ADMIT Emergency Medicine
DX: I82.411 Acute embolism and thrombosis of right femoral vein (principal); I26.99 Other pulmonary embolism without acute cor pulmonale; E44.1 Mild protein-calorie malnutrition; D69.6 Thrombocytopenia, unspecified; I82.431 Acute embolism and thrombosis of right popliteal vein; F10.10 Alcohol abuse, uncomplicated; R00.0 Tachycardia, unspecified; R74.0 Nonspecific elevation of levels of transaminase and lactic acid dehydrogenase [LDH]; F17.220 Nicotine dependence, chewing tobacco, uncomplicated; D72.810 Lymphocytopenia; D64.9 Anemia, unspecified; E53.8 Deficiency of other specified B group vitamins; I82.441 Acute embolism and thrombosis of right tibial vein; Z60.2 Problems related to living alone; Z71.6 Tobacco abuse counseling; Z79.899 Other long term (current) drug therapy; Z68.20 Body mass index [BMI] 20.0-20.9, adult; Z82.3 Family history of stroke; Z82.49 Family history of ischemic heart disease and other diseases of the circulatory system

== ENCOUNTER → 2017-09-21 | Outpatient (CLI) | payer MEDICARE, MEDICAID ==
[~2017-09-21] MED LIST changes: +COUMADIN5 M2 PO; +ENOXAPARIN80 MG/0.2 SC
[2017-09-21 15:22] LABS: INTERNATIONAL NORM RATIO 1.4 (2.0-3.5)
== END | disposition home or self-care (01) ==
LOC: LAB 14:31
PROVIDERS: Emergency Medicine
DX: I82.401 Acute embolism and thrombosis of unspecified deep veins of right lower extremity (principal); Z79.01 Long term (current) use of anticoagulants

== ENCOUNTER → 2017-09-22 | Outpatient (CLI) | payer MEDICARE, MEDICAID ==
[2017-09-22 12:55] LABS: INTERNATIONAL NORM RATIO 1.7 (2.0-3.5)
== END | disposition home or self-care (01) ==
LOC: RESCLI 08:43
PROVIDERS: Internal Medicine
DX: I82.431 Acute embolism and thrombosis of right popliteal vein (principal); K76.0 Fatty (change of) liver, not elsewhere classified; R79.1 Abnormal coagulation profile; F41.9 Anxiety disorder, unspecified; Z72.0 Tobacco use

== ENCOUNTER → 2019-09-15 | Outpatient (CLI) | payer MEDICARE, MEDICAID | END | disposition home or self-care (01) | LOC: US 11:28 | DX: I82.501 Chronic embolism and thrombosis of unspecified deep veins of right lower extremity (principal); I82.502 Chronic embolism and thrombosis of unspecified deep veins of left lower extremity ==

== ENCOUNTER → 2019-09-16 | Outpatient (CLI) | payer MEDICARE, MEDICAID | END | disposition home or self-care (01) | LOC: MRI 00:31 | DX: C71.9 Malignant neoplasm of brain, unspecified (principal); R90.82 White matter disease, unspecified ==

== ENCOUNTER → 2019-09-22 | Outpatient (CLI) | payer MEDICARE, MEDICAID | END | disposition home or self-care (01) | LOC: CT 09-20 11:00 | DX: R91.1 Solitary pulmonary nodule (principal) ==